=== PATIENT | female | born 1945 | race Caucasian/White ===

== ENCOUNTER 2024-04-09 10:09 | Inpatient (IN) | payer MEDICARE ==
[2024-04-09] MEDS ORDERED: Iopamidol 300 61% 100 ML VIAL FS ONE (10:14)
[2024-04-09 10:59] LABS: #Basophils 0.03 10x3/uL (0.0-0.2); #Eosinphils 0.13 10x3/uL (0.0-0.5); #Monocytes 0.65 10x3/uL (0.0-1.1); #Neutrophils 7.97 10x3/uL (1.5-8.4); %Basophils 0.3 % (0.0-2.0); %Eosinophils 1.2 % (0.0-6.0); %Neutrophils 73.3 % (40.0-75.0); Hematocrit 38.4 % (34.9-44.5); Hemoglobin 13.5 g/dL (12.0-15.5); Mean Corpuscular HGB CONC 35.2 g/dL (32.0-36.0); Mean Corpuscular Hemoglobin 32.8 pg (27.0-33.0); Mean Corpuscular Volume 93.4 fL (81.6-98.3); Mean Platelet Volume 9.8 fL (7.4-10.4); Platelet Count 250 10x3/uL (150-450); RBC Distribution Width 11.9 % (11.5-14.5); Red Blood Cell (RBC) Count 4.11 10x6/uL (3.90-5.03); White Blood Cell (WBC) Count 10.9 10x3/uL (3.5-10.5)
[2024-04-09] MEDS ORDERED: PHENYLEPHRINE-NS 100 MCG/ML 10 ML SYRINGE ONE (11:04)
[2024-04-09] MEDS ORDERED: Nitroglycerin 50 MG/250 ML BOT 0 ML ONE (11:05)
[2024-04-09] MEDS ORDERED: Adenosine 6 mg (2 mL) VIAL ONE (11:05)
[2024-04-09] MEDS ORDERED: Lidocaine 1% (PF) 30 ML VIAL ONE (11:05)
[2024-04-09] MEDS ORDERED: Heparin 10,000 UNITS/ 10 ML VIAL ONE (11:05)
[2024-04-09] MEDS ORDERED: Atropine Sulfate 1 mg/1 ml Vial ONE (11:05)
[2024-04-09 11:08] LABS: Anion Gap 15 mmol/L (10-20); BUN (Urea Nitrogen) 13 mg/dL (9.8-20.1); Calc. Creatinine Clearance 66 mL/min (70-130); Calcium 10.1 mg/dL (7.8-10.44); Carbon Dioxide 24 mmol/L (23-31); Chloride 105 mmol/L (98-107); Estimated GFR 61; Glucose 109 mg/dL (83-110); INR-International Normal Ratio 0.9; PTT 27.4 sec (22.0-33.0); Potassium 3.8 mmol/L (3.5-5.1); Prothrombin Time 10.3 sec (9.5-12.1); Sodium 140 mmol/L (136-145)
[2024-04-09] MEDS ORDERED: Phenylephrine 40 MG/NS 250 ML 250 ML ONE (11:08)
[2024-04-09] MEDS ORDERED: Midazolam HCl 2 mg/2 ml Vial ONE (12:00)
[2024-04-09] MEDS ORDERED: fentaNYL 50 mcg/mL 1 mL Vial ONE (12:00)
[2024-04-09] MEDS ORDERED: Ondansetron ODT 4 MG TAB PO PRN (13:59)
[2024-04-09] MEDS ORDERED: Senokot S 8.6-50 MG TAB PO PRN (13:59)
[2024-04-09] MEDS ORDERED: Ondansetron PF 4 MG/2 ML Vial IVP PRN (13:59)
[2024-04-09] MEDS ORDERED: Loperamide HCl 2 MG CAP PO PRN (13:59)
[2024-04-09] MEDS ORDERED: Calcium Carbonate 500 MG ChewTAB PO PRN (13:59)
[2024-04-09] MEDS: Sodium Chloride 0.9% 1,000 ML IV SCH (14:00)
[2024-04-09] MEDS ORDERED: Sodium Chloride 0.9% 200 ML IV PRN (14:12)
[2024-04-09] MEDS ORDERED: Nitroglycerin 0.4 MG TAB (25 Tab Bottle) SL PRN (14:12)
[2024-04-09] MEDS ORDERED: Phenylephrine 40 MG in Sodium Chloride 0.9% 250 ML 250 ML IVPB SCH (14:15)
[2024-04-09] MEDS: Acetaminophen 325 MG TAB PO SCH (19:07)
[2024-04-10] MEDS: Phenylephrine 40 MG/NS 250 ML 40 MG in Premix 1 BAG IVPB SCH (01:03)
[2024-04-10 03:47] VITALS: BMI 41.8
[2024-04-10 04:32] LABS: #Basophils 0.03 10x3/uL (0.0-0.2); #Eosinphils 0.06 10x3/uL (0.0-0.5); #Monocytes 0.59 10x3/uL (0.0-1.1); #Neutrophils 9.08 10x3/uL (1.5-8.4); %Basophils 0.3 % (0.0-2.0); %Eosinophils 0.5 % (0.0-6.0); %Lymphocytes 18.3 % (18.0-47.0); %Monocytes 4.9 % (0.0-10.0); %Neutrophils 75.7 % (40.0-75.0); Hematocrit 30.5 % (34.9-44.5); Hemoglobin 10.7 g/dL (12.0-15.5); Mean Corpuscular HGB CONC 35.1 g/dL (32.0-36.0); Mean Corpuscular Hemoglobin 33.1 pg (27.0-33.0); Mean Corpuscular Volume 94.4 fL (81.6-98.3); Mean Platelet Volume 10.1 fL (7.4-10.4); Platelet Count 226 10x3/uL (150-450); Red Blood Cell (RBC) Count 3.23 10x6/uL (3.90-5.03)
[2024-04-10 04:52] LABS: ALT (SGPT) 15 U/L (8-55); AST (SGOT) 19 U/L (5-34); Albumin 3.3 g/dL (3.4-4.8); Alkaline Phosphatase 140 U/L (40-110); Anion Gap 13 mmol/L (10-20); BUN (Urea Nitrogen) 13 mg/dL (9.8-20.1); Bilirubin, Total 0.5 mg/dL (0.2-1.2); Calc. Creatinine Clearance 81 mL/min (70-130); Calcium 8.9 mg/dL (7.8-10.44); Carbon Dioxide 19 mmol/L (23-31); Chloride 112 mmol/L (98-107); Estimated GFR 65; Globulin 2.8 g/dL (2.4-3.5); Glucose 114 mg/dL (83-110); Potassium 3.6 mmol/L (3.5-5.1); Protein, Total 6.1 g/dL (5.8-8.1); Sodium 140 mmol/L (136-145)
[2024-04-10] MEDS: Potassium Chloride 20 MEQ TAB PO SCH (07:03)
[2024-04-10] MEDS: Clopidogrel Bisulfate 75 MG TAB PO SCH (10:15)
[2024-04-10] MEDS: Aspirin 81 mg Enteric Coated Tablet PO SCH (10:15)
[2024-04-10] MEDS: Enoxaparin 40 MG (0.4 mL) SYRINGE SC SCH (10:16)
[2024-04-10 12:47] VITALS: BP 112/46; TEMP 98.2
[2024-04-10] MEDS ORDERED: Atorvastatin Calcium 20 MG TAB PO SCH (21:00)
== END 2024-04-10 14:20 | disposition home or self-care (01) | DRG 35 ==
LOC: CSHSDC 10:09 → CSHTELE 14:10
PROVIDERS: ADMIT Specialist; ATTEND Specialist
PROC: B3101ZZ Fluoroscopy of Thoracic Aorta using Low Osmolar Contrast (ICD-10-PCS; principal; 2024-04-09)
PROC: 037K3DZ Dilation of Right Internal Carotid Artery with Intraluminal Device, Percutaneous Approach (ICD-10-PCS; 2024-04-09)
PROC: 3E033XZ Introduction of Vasopressor into Peripheral Vein, Percutaneous Approach (ICD-10-PCS; 2024-04-09)
DX: I65.23 Occlusion and stenosis of bilateral carotid arteries (principal); Z68.41 Body mass index [BMI] 40.0-44.9, adult; I25.10 Atherosclerotic heart disease of native coronary artery without angina pectoris; I10 Essential (primary) hypertension; I73.9 Peripheral vascular disease, unspecified; Z90.710 Acquired absence of both cervix and uterus; Z98.890 Other specified postprocedural states; Z98.51 Tubal ligation status; Z87.891 Personal history of nicotine dependence; Z82.49 Family history of ischemic heart disease and other diseases of the circulatory system; Z88.1 Allergy status to other antibiotic agents; Z88.5 Allergy status to narcotic agent; I95.81 Postprocedural hypotension; E78.2 Mixed hyperlipidemia; E66.9 Obesity, unspecified
CPT/HCPCS: 36217; 36223; 36415; 37215; 71046; 80048; 80053; 83735; 85025; 85347; 85610; 85730; 93005; 93010; 99152; 99153; C1725; C1760; C1769; C1876; C1884; C1894; J0153; J0461; J1644; J1650; J2001; J2250; J3010; J7030; Q9967